=== PATIENT | male | born 1980 | race Caucasian/White ===

== ENCOUNTER 2018-02-27 15:07 | Emergency (ER) | payer BC ==
--- OUTSIDE RECORDS SUMMARY | 2018-02-27 16:24 | XMS REPORT | Continuity of Care Document ---
:1980 External Reference #:[id number] Author Name Kathryn Carballo Care Team Providers Name Role Phone Norma Sheriff PA-C Care Team Information [employer] Operator Unavailable Norma Sheriff PA-C Primary Care Physician Unavailable Payers Type Date Identification Numbers Payment Provider Subscriber Policy Number: [id number] BS JAMELY David Ramirez PayID: [id number] [address] [address] [place] [address] Advance Directives Description No Information Available Problems Description No Information Family History Date Family Member(s) Problem(s) Comments : (age 50 Years) Father due to Unknown Causes Mother Unremarkable Siblings None Social History Type Date Description Comments Sex Unknown Tobacco Use Start: Unknown Never Smoked Cigarettes ETOH Use Never used alcohol Recreational Drug Use Never Used Drugs Allergies, Adverse Reactions, Alerts Description No Known Drug Allergies Medications Medication Date Status Form Strength Qnty SIG Indications Ordering Provider Furosemide Active Tablets 1 by mouth Unknown every day Immunizations Description No Information Available Vital Signs Date Vital Result Comment 02/18/2018 11:19am Weight 353.00 lb Height 70 inches 5'10" BMI (Body Mass Index) 50.6 kg/m2 BP Systolic 127 mmHg BP Diastolic 87 mmHg Heart Rate 69 /min O2 % BldC Oximetry 99 % Body Temperature 96.2 F Pain Level 0 01/24/2018 3:21pm Weight 348.00 lb Height 70 inches 5'10" BMI (Body Mass Index) 49.9 kg/m2 BP Systolic 135 mmHg BP Diastolic 84 mmHg Heart Rate 76 /min O2 % BldC Oximetry 94 % Body Temperature 97.6 F Haslett Score 15 Neck Circumference in inches 18.5 Pain Level 0 Results Description No Information Available Procedures Date Code Description Status 01/31/2018 82274 Sleep Staging 4Or More Para Completed 01/24/2018 35143 Fiberoptic Laryngoscopy,Diag. Completed Encounters Type Date Location Provider Dx Diagnosis Office Visit 01/24/2018 Main Office Bird Bundy M.D. K21.9 Gastro- esophageal 3:30p reflux disease without esophagitis R06.83 Snoring G47.9 Sleep disorder, unspecified E66.9 Obesity, unspecified Plan of Treatment No Information Available
[2018-02-27 16:33] VITALS: BP 133/78
--- NOTE | 2018-02-27 17:34 | RAD ---
Indication: Left ankle pain after fall 3 views of left ankle demonstrate soft tissue swelling. No fracture is noted. No other bone or joint abnormality is noted. Ankle mortise is intact. IMPRESSION: Soft tissue swelling without fracture.
--- NOTE | 2018-02-27 17:56 | UC ---
Lower Extremity/Ankle HPI - HPI Summary HPI Summary: 38 YP MALE comes to clinic today with a complaint of left ankle pain. Yesterday was walking he turned and rolled his left ankle. Pain initially was mild to moderate. He was able to work overnight with the ankle pain. Pain is gotten worse and the ankle swollen. It's worse with weightbearing. Better with rest. Patient states his ankles are always swollen the left ankle is more swollen than usual. - History of Current Complaint Chief Complaint: UCLowerExtremity Stated Complaint: LEFT ANKLE INJURY Time Seen by Provider: 02/27/18 16:46 Pain Intensity: 9 - Allergies/Home Medications Allergies/Adverse Reactions: Allergies Allergy/AdvReac Type Severity Reaction Status Date / Time No Known Allergies Allergy Verified 02/27/18 16:29 Home Medications: Home Medications Furosemide TAB* [Lasix TAB*] 20 mg PO DAILY 02/27/18 [History Confirmed 02/27/18 ] PMH/Surg Hx/FS Hx/Imm Hx Other History Of: Negative For: HIV, Hepatitis B, Hepatitis C, Anticoagulant Therapy - Surgical History Surgical History: Yes Surgery Procedure, Year, and Place: tonsillectomy. BRONCHOSCOPY, 1999 - Family History Known Family History: Positive: None, Cardiac Disease - grandfather-CHF, Hypertension - grandfather, Diabetes - maternal grandfather, paternal grandparents - Social History Alcohol Use: None Substance Use Type: None Smoking Status (MU): Never Smoked Tobacco Review of Systems Constitutional: Negative Skin: Negative Eyes: Negative ENT: Negative Respiratory: Negative Cardiovascular: Negative Gastrointestinal: Negative Motor: Negative Neurovascular: Negative Musculoskeletal: Other: - SEE HPI Neurological: Negative Psychological: Negative Is Patient Immunocompromised?: No All Other Systems Reviewed And Are Negative: Yes Physical Exam Triage Information Reviewed: Yes Appearance: Well-Appearing, No Pain Distress, Well-Nourished Vital Signs: Initial Vital Signs Temp 97.5 F 02/27/18 16:23 Pulse 97 02/27/18 16:23 Resp 18 02/27/18 16:23 BP 133/78 02/27/18 16:23 Pulse Ox 98 02/27/18 16:23 Vital Signs Reviewed: Yes Eye Exam: Normal Neck: Positive: Supple Respiratory: Positive: No respiratory distress Musculoskeletal: Positive: Other: - Left ankle is swollen and tender to palpation on the lateral aspect. He has full range of motion. The Achilles tendon is intact. The foot is nontender to palpation. The lower leg above the ankle is nontender to palpation. The knee is nontender to palpation. Neurological Exam: Normal Psychological Exam: Normal Skin Exam: Normal Lower Extremity Course/Dx - Course Course Of Treatment: Order Information: ANKLE LEFT 3+VWS. Accession Number: [id number]. CPT: 55090. Indication: Left ankle pain after fall. 3 views of left ankle demonstrate soft tissue swelling. No fracture is noted. No other. bone or joint abnormality is noted. Ankle mortise is intact. IMPRESSION: Soft tissue swelling without fracture. . <Electronically signed by Eboni Gomez MD in OV> 02/27/18 4832. X-ray report discussed with the patient. Checo wrap applied by the nurse. Neurovascularly intact after application of the Checo wrap. Follow-up with primary care doctor recheck sooner if worse. - Differential Dx/Diagnosis Provider Diagnoses: LEFT ANKLE SPRAIN Discharge - Sign-Out/Discharge Documenting (check all that apply): Patient Departure All imaging exams completed and their final reports reviewed: Yes - Discharge Plan Condition: Stable Disposition: HOME Patient Education Materials: Ankle Sprain (ED) Forms: *Work Release Referrals: Harriet Sheriff PA [Primary Care Provider] - Additional Instructions: FOLLOW UP WITH YOUR DOCTOR. GET RECHECKED FOR ANY WORSENING OF YOUR CONDITION OR QUESTIONS OR CONCERNS. - Billing Disposition and Condition Condition: STABLE Disposition: Home
== END 2018-02-27 18:09 | disposition home or self-care (01) ==
LOC: UCCORT 15:07
DX: S93.402A Sprain of unspecified ligament of left ankle, initial encounter (principal); X50.1XXA Overexertion from prolonged static or awkward postures, initial encounter; Y93.01 Activity, walking, marching and hiking; Y92.9 Unspecified place or not applicable
CPT/HCPCS: 99212; G0463

== ENCOUNTER 2019-07-14 13:40 | Emergency (ER) | payer BC ==
[2019-07-14 14:58] VITALS: BP 130/80
--- NOTE | 2019-07-14 16:07 | UC ---
Lower Extremity/Ankle HPI - HPI Summary HPI Summary: Pt presents with c/o sudden onset of swelling of left lower extremity that has worsened over the last two days. Pt has history of lymphadema and currently does not have a PCP. - History of Current Complaint Chief Complaint: UCGeneralIllness Stated Complaint: SWOLLEN LEFT LEG Time Seen by Provider: 07/14/19 15:39 Hx Obtained From: Patient Onset/Duration: Sudden Onset, Lasting Days, Still Present Severity Initially: Mild Severity Currently: Moderate Pain Intensity: 7 Pain Scale Used: 0-10 Numeric Aggravating Factor(s): Standing, Ambulation Alleviating Factor(s): Nothing Able to Bear Weight: Yes - painful - Risk Factors Gout Risk Factors: Male, Obesity DVT Risk Factors: Negative Septic Arthritis Risk Factor: Negative - Allergies/Home Medications Allergies/Adverse Reactions: Allergies Allergy/AdvReac Type Severity Reaction Status Date / Time No Known Allergies Allergy Verified 07/14/19 14:58 Home Medications: Home Medications NK [No Home Medications Reported] 07/14/19 [History Confirmed 07/14/19] PMH/Surg Hx/FS Hx/Imm Hx Previously Healthy: Yes Other History Of: Negative For: HIV, Hepatitis B, Hepatitis C, Anticoagulant Therapy - Surgical History Surgical History: Yes Surgery Procedure, Year, and Place: tonsillectomy. BRONCHOSCOPY, 1999 - Family History Known Family History: Positive: None, Cardiac Disease - grandfather-CHF, Hypertension - grandfather, Diabetes - maternal grandfather, paternal grandparents - Social History Occupation: Employed Full-time Lives: With Family Alcohol Use: None Substance Use Type: None Smoking Status (MU): Never Smoked Tobacco Have You Smoked in the Last Year: No Review of Systems All Other Systems Reviewed And Are Negative: Yes Constitutional: Positive: Negative Skin: Positive: Other - dry flaky Eyes: Positive: Negative ENT: Positive: Negative Respiratory: Positive: Negative Cardiovascular: Positive: Negative Gastrointestinal: Positive: Negative Genitourinary: Positive: Negative Motor: Positive: Decreased ROM - lower extremity Neurovascular: Positive: Negative Musculoskeletal: Positive: Edema - bialteral extremities left > right Neurological: Positive: Negative Psychological: Positive: Negative Is Patient Immunocompromised?: No Physical Exam Triage Information Reviewed: Yes Appearance: Obese Vital Signs: Initial Vital Signs Temp 97.4 F 07/14/19 14:51 Pulse 80 02/03/20 14:51 Resp 18 07/14/19 14:51 BP 130/80 07/14/19 14:51 Pulse Ox 98 07/14/19 14:51 Vital Signs Reviewed: Yes Eye Exam: Normal ENT: Positive: Hearing grossly normal Dental Exam: Normal Neck exam: Normal Respiratory Exam: Normal Cardiovascular Exam: Normal Musculoskeletal: Positive: Edema @ - left lower extremity measure 53.5 cm in circumference and right lower extremity 43.0 cm. NO skin break down but skin was very dry and flaky, Concern fo rskin break josé miguel. Neurological Exam: Normal Psychological Exam: Normal Skin Exam: Normal - dry and flaky Lower Extremity Course/Dx - Course Course Of Treatment: The pt has a hx of bilateral lower extremity edema with 4 "episodes" prior to arrival at . Pt has been on diuretic medication with no improvement. Pt has been referred to PT at [facility] for lymphedema management and given contact for Zoey Bond to establish care with PCP. - Differential Dx/Diagnosis Differential Diagnosis/HQI/PQRI: DVT, Infection Provider Diagnosis: Lymphedema, Lymphedema of left lower extremity Discharge ED - Sign-Out/Discharge Documenting (check all that apply): Patient Departure All imaging exams completed and their final reports reviewed: No Studies - Discharge Plan Condition: Stable Disposition: HOME-RECOMMEND TO ED Patient Education Materials: Leg Edema (ED) Forms: *Work Release Referrals: [facility] [Outside] No Primary Care Phys,NOPCP [Primary Care Provider] - Additional Instructions: It is recommended that you seek further testing and evaluation for your current complaint of lower leg edema. Please establish care with a PCP as soon a possible. - Billing Disposition and Condition Condition: STABLE Disposition: Home-Recommend to ED
== END 2019-07-14 16:01 | disposition home health service (06) ==
LOC: UCCORT 13:40
DX: I89.0 Lymphedema, not elsewhere classified (principal)
CPT/HCPCS: 99211; G0463